=== PATIENT | female | born 1975 | race Caucasian/White ===

== ENCOUNTER 2018-01-06 21:30 | Emergency (ER) | payer OTHER ==
[2018-01-06 21:37] VITALS: Ht 165.1 cm
[2018-01-06 23:35] VITALS: BP 135/84
== END 2018-01-06 23:35 | disposition home or self-care (01) ==
LOC: ED 21:30
DX: S61.232A Puncture wound without foreign body of right middle finger without damage to nail, initial encounter (principal); F32.9 Major depressive disorder, single episode, unspecified; K21.9 Gastro-esophageal reflux disease without esophagitis; G89.29 Other chronic pain; Z98.51 Tubal ligation status; W46.0XXA Contact with hypodermic needle, initial encounter; Y93.89 Activity, other specified; Y92.89 Other specified places as the place of occurrence of the external cause; Y99.8 Other external cause status